=== PATIENT | female | born 1980 | race Caucasian/White ===

== ENCOUNTER 2017-04-09 11:27 | Emergency (ER) | payer BC ==
[2017-04-09 14:48] VITALS: BP 118/77
--- NOTE | 2017-04-09 15:00 | UC ---
Throat Pain/Nasal Malvin HPI - HPI Summary HPI Summary: Pt c/o fever chills, nasal congestion , sinus pressure and pain X 2 weeks. - History of Current Complaint Stated Complaint: FLU SXS Time Seen by Provider: 04/09/17 14:42 Hx Obtained From: Patient Hx Last Menstrual Period: 04/04/17 ?: No Onset/Duration: Gradual Onset, Lasting Weeks, Still Present, Worse Since - onset Severity: Moderate Pain Intensity: 6 Associated Signs & Symptoms: Positive: Sinus Discomfort - Epiglottits Risk Factors Epiglottis Risk Factors: Negative - Allergies/Home Medications Allergies/Adverse Reactions: Allergies Allergy/AdvReac Type Severity Reaction Status Date / Time No Known Allergies Allergy Verified 04/09/17 14:48 PMH/Surg Hx/FS Hx/Imm Hx Previously Healthy: Yes - Surgical History Surgical History: Yes Surgery Procedure, Year, and Place: L knee - Family History Known Family History: Positive: None, Cardiac Disease, Hypertension, Diabetes Negative: Renal Disease - Social History Occupation: Employed Full-time Lives: With Family Alcohol Use: Occasionally Alcohol Amount: once a week Substance Use Type: None Smoking Status (MU): Never Smoked Tobacco Have You Smoked in the Last Year: No Review of Systems Constitutional: Fever Skin: Negative Eyes: Negative ENT: Sinus Congestion, Sinus Pain/Tenderness Respiratory: Negative Cardiovascular: Negative Gastrointestinal: Negative Genitourinary: Negative Motor: Negative Neurovascular: Negative Musculoskeletal: Negative Neurological: Headache Psychological: Negative Is Patient Immunocompromised?: No All Other Systems Reviewed And Are Negative: Yes Physical Exam Triage Information Reviewed: Yes Appearance: Ill-Appearing Vital Signs: Initial Vital Signs Temp 99 F 04/09/17 14:42 Pulse 85 04/09/17 14:42 Resp 16 04/09/17 14:42 BP 118/77 04/09/17 14:42 Pulse Ox 98 04/09/17 14:42 Vital Signs Reviewed: Yes Eye Exam: Normal ENT Exam: Other ENT: Positive: Nasal congestion, Sinus tenderness Neck exam: Normal Respiratory Exam: Normal Cardiovascular Exam: Normal Musculoskeletal Exam: Normal Neurological Exam: Normal Psychological Exam: Normal Skin Exam: Normal Throat Pain/Nasal Course/Dx - Differential Dx/Diagnosis Differential Diagnosis/HQI/PQRI: Influenza, Sinusitis, URI Provider Diagnoses: sinusitis Discharge - Discharge Plan Condition: Stable Disposition: HOME Prescriptions: Amoxicillin PO (*) [Amoxicillin 875 MG (*)] 875 mg PO Q12H #20 tab Guaifenesin/Pseudo 600/60(NF) [Mucinex D 600/60 (NF)] 1 tab PO Q12H #14 tab Patient Education Materials: Sinusitis (ED) Referrals: [facility] [Outside] No Primary Care Phys,NOPCP [Primary Care Provider] -
== END 2017-04-09 15:07 | disposition home or self-care (01) ==
LOC: UCCORT 11:27
DX: J32.9 Chronic sinusitis, unspecified (principal)
CPT/HCPCS: 99212; G0463

== ENCOUNTER 2017-05-11 15:48 | Emergency (ER) | payer BC ==
[2017-05-11 16:05] VITALS: BP 107/68
--- NOTE | 2017-05-11 16:22 | ED ---
Upper Extremity Pain - HPI Summary HPI Summary: 36 yr old female with the complaint of left shoulder, clavicle pain. Onset three weeks ago. She fell going down the stairs and broke her fall by landing on her left elbow. She has some vague pain in the left anterior shoulder, then she went bowling with a heavy ball the same day. She has had persistent, and worsening pain in the left anterior shoulder and has felt a small swelling area over the most lateral part of the clavicle. Pain is moderate. Her limitations are lifting her left arm past 90 degrees abduction, and lifting it in flexion beyond about 150 degrees. - History of Current Complaint Chief Complaint: UCUpperExtremity Stated Complaint: LEFT SHLDR INJURY Time Seen by Provider: 05/11/17 16:01 Hx Last Menstrual Period: 05/06/17 - Allergies/Home Medications Allergies/Adverse Reactions: Allergies Allergy/AdvReac Type Severity Reaction Status Date / Time No Known Allergies Allergy Verified 05/11/17 16:04 PMH/Surg Hx/FS Hx/Imm Hx Respiratory History: Reports: Hx Asthma - early - Surgical History Surgery Procedure, Year, and Place: L knee Infectious Disease History: No Infectious Disease History: Denies: Traveled Outside the [place] in Last 30 Days - Family History Known Family History: Positive: None, Cardiac Disease, Hypertension, Diabetes Negative: Renal Disease - Social History Alcohol Use: Occasionally Alcohol Amount: once a week Substance Use Type: Reports: None Smoking Status (MU): Never Smoked Tobacco Have You Smoked in the Last Year: No Review of Systems Constitutional: Negative Positive: Other - left shoulder, clavicle pain All Other Systems Reviewed And Are Negative: Yes Physical Exam Triage Information Reviewed: Yes Vital Signs On Initial Exam: Initial Vitals Temp Pulse Resp BP Pulse Ox 98.6 F 82 16 107/68 99 05/11/17 15:59 05/11/17 15:59 05/11/17 15:59 05/11/17 15:59 05/11/17 15:59 Vital Signs Reviewed: Yes Appearance: Positive: Well-Appearing, No Pain Distress Skin: Positive: Warm, Skin Color Reflects Adequate Perfusion Head/Face: Positive: Normal Head/Face Inspection Eyes: Positive: EOMI ENT: Positive: Normal ENT inspection, TMs normal Neck: Positive: Nontender. Negative: Tenderness @ Respiratory/Lung Sounds: Positive: Clear to Auscultation, Breath Sounds Present , Other - no chest wall tenderness Cardiovascular: Positive: RRR. Negative: Murmur Abdomen Description: Positive: Nontender Musculoskeletal: Positive: Other - exam of left shoulder, clavicle is with point tenderness over the left AC joint area, and she is limited in abduction past 90 degrees at shoulder, 150 degree forward flexion and positive drop arm sign. External and internal rotation left shoulder WNL. Neurological: Positive: Sensory/Motor Intact, Alert, Oriented to Person Place, Time, CN Intact II-III Psychiatric: Positive: Normal - [place] Coma Scale Best Eye Response: 4 - Spontaneous Best Motor Response: 6 - Obeys Commands Best Verbal Response: 5 - Oriented Coma Scale Total: 15 Diagnostics - Vital Signs Vital Signs Temp Pulse Resp BP Pulse Ox 05/11/17 15:59 98.6 F 82 16 107/68 99 - Laboratory Lab Statement: Any lab studies that have been ordered have been reviewed, and results considered in the medical decision making process. - Radiology left shoulder, clavicle. Xray Interpretation: No Acute Changes Radiology Interpretation Completed By: Radiologist Course/Dx - Course Course Of Treatment: 36 yr old female with negative films. Dong has a mild AC joint separation/ and or a tear of the rotator cuff. WIll give sling and follow up with Orthopedics for further eval. - Diagnoses Provider Diagnoses: AC joint pain, Rotator cuff injury Discharge - Discharge Plan Condition: Good Disposition: HOME Prescriptions: Ibuprofen TAB* [Motrin TAB* 600 MG] 600 mg PO Q8H PRN #20 tab PRN Reason: Pain Patient Education Materials: Rotator Cuff Injury (ED), Shoulder Pain (ED) Referrals: Non Staff,Doctor [Primary Care Provider] - Maxx Martínez MD [Medical Doctor] -
--- NOTE | 2017-05-11 16:52 | RAD ---
Indication: Fall 4 weeks ago. No interval trauma. Sore LEFT shoulder and clavicle. Comparison: No relevant prior exams available on the [facility] PACS for comparison. Technique: AP and cephalad oblique views LEFT clavicle. Internal rotation AP, external rotation Grashey, scapular Y, axillary views LEFT shoulder Report: Normal sternoclavicular joint alignment. Normal acromioclavicular and glenohumeral joint alignment. Negative for clavicle, scapula, or proximal humeral fracture. No significant arthropathic change evident. Negative for stigmata of calcific tendinopathy. Unremarkable soft tissue contours. IMPRESSION: Negative radiographic exam of the LEFT clavicle and shoulder.
--- NOTE | 2017-05-11 16:52 | RAD ---
Indication: Fall 4 weeks ago. No interval trauma. Sore LEFT shoulder and clavicle. Comparison: No relevant prior exams available on the [facility] PACS for comparison. Technique: AP and cephalad oblique views LEFT clavicle. Internal rotation AP, external rotation Grashey, scapular Y, axillary views LEFT shoulder Report: Normal sternoclavicular joint alignment. Normal acromioclavicular and glenohumeral joint alignment. Negative for clavicle, scapula, or proximal humeral fracture. No significant arthropathic change evident. Negative for stigmata of calcific tendinopathy. Unremarkable soft tissue contours. IMPRESSION: Negative radiographic exam of the LEFT clavicle and shoulder.
== END 2017-05-11 17:08 | disposition home or self-care (01) ==
LOC: UCCORT 15:48
DX: M25.512 Pain in left shoulder (principal); S46.002A Unspecified injury of muscle(s) and tendon(s) of the rotator cuff of left shoulder, initial encounter; W10.9XXA Fall (on) (from) unspecified stairs and steps, initial encounter; Y93.01 Activity, walking, marching and hiking; Y92.9 Unspecified place or not applicable
CPT/HCPCS: 99213; G0463

== ENCOUNTER 2017-10-07 12:04 | Emergency (ER) | payer BC ==
[2017-10-07 12:41] VITALS: BP 112/71
== END 2017-10-07 13:27 | disposition left against medical advice (07) ==
LOC: UCCORT 12:04
DX: T15.91XA Foreign body on external eye, part unspecified, right eye, initial encounter (principal); Z53.21 Procedure and treatment not carried out due to patient leaving prior to being seen by health care provider

== ENCOUNTER 2017-12-24 14:40 | Emergency (ER) | payer BC ==
[2017-12-24 15:28] VITALS: BP 110/64
--- NOTE | 2017-12-24 15:35 | UC ---
Respiratory Complaint HPI - HPI Summary HPI Summary: 37 yo female presents with sinus pain/pressure/congestion and dry cough for the last 2 weeks. She has been taking OTC ibuprofen and cold medicine with no relief. She has a hx of asthma and has been using her albuterol inhaler with no relief. She denies fever, chills, sore throat, SOB, chest pain. - History of Current Complaint Chief Complaint: UCRespiratory Stated Complaint: COUGH, CONGESTION Time Seen by Provider: 12/24/17 15:34 Hx Obtained From: Patient Hx Last Menstrual Period: 12/01/17 Onset/Duration: Gradual Onset Severity Currently: None Pain Intensity: 0 - Allergies/Home Medications Allergies/Adverse Reactions: Allergies Allergy/AdvReac Type Severity Reaction Status Date / Time No Known Allergies Allergy Verified 12/24/17 15:17 Home Medications: Home Medications Albuterol HFA INHALER* [Ventolin HFA Inhaler*] 2 puff INH Q4H PRN 12/24/17 [ History Confirmed 12/24/17] Dm/Acetaminophen/Doxylamine [Nighttime Cold-Flu Liquid] 30 ml PO PRN 12/24/17 [ History] Otc Allergy Med 1 tab PO DAILY 12/24/17 [History] PMH/Surg Hx/FS Hx/Imm Hx Respiratory History: Asthma - Surgical History Surgical History: Yes Surgery Procedure, Year, and Place: L knee - Family History Known Family History: Positive: None, Cardiac Disease, Hypertension, Diabetes Negative: Renal Disease - Social History Occupation: Employed Full-time Lives: With Family Alcohol Use: Occasionally Alcohol Amount: once a week Substance Use Type: None Smoking Status (MU): Never Smoked Tobacco Have You Smoked in the Last Year: No Review of Systems Constitutional: Negative Skin: Negative Eyes: Negative ENT: Nasal Discharge, Sinus Congestion, Sinus Pain/Tenderness Respiratory: Cough Cardiovascular: Negative Gastrointestinal: Negative Neurovascular: Negative Neurological: Negative Psychological: Negative All Other Systems Reviewed And Are Negative: Yes Physical Exam - Summary Physical Exam Summary: GENERAL: NAD. WDWN. No pain distress. SKIN: No rashes, sores, lesions, or open wounds. HEENT: Head: AT/NC Eyes: EOM intact. Conjunctiva clear without inflammation or discharge. Ears: Hearing grossly normal. TMs intact, no bulging, erythema, or edema. Nose: Nasal mucosa mildly swollen and erythematous with clear discharge. TTP maxillary and frontal sinus. Positive post nasal drip Throat: Posterior oropharynx without exudates, erythema, or tonsillar enlargement. Uvula midline. NECK: Supple. Nontender. No lymphadenopathy. CHEST: CTAB. No r/r/w. No accessory muscle use. Breathing comfortably and in no distress. CV: RRR. Without m/r/g. Pulses intact. NEURO: Alert. PSYCH: Age appropriate behavior. Triage Information Reviewed: Yes Vital Signs: Initial Vital Signs Temp 97.5 F 12/24/17 15:20 Pulse 68 12/24/17 15:20 Resp 16 12/24/17 15:20 BP 110/64 12/24/17 15:20 Pulse Ox 100 12/24/17 15:20 Vital Signs Reviewed: Yes UC Diagnostic Evaluation - Laboratory O2 Sat by Pulse Oximetry: 100 Respiratory Course/Dx - Course Course Of Treatment: Sinusitis - Differential Dx/Diagnosis Provider Diagnoses: Sinusitis. Cough Discharge - Sign-Out/Discharge Documenting (check all that apply): Patient Departure All imaging exams completed and their final reports reviewed: No Studies - Discharge Plan Condition: Stable Disposition: HOME Prescriptions: Amoxicillin PO (*) [Amoxicillin 875 MG (*)] 875 mg PO BID #14 tab Benzonatate CAP* [Tessalon 100 MG CAP*] 100 mg PO TID PRN #21 cap PRN Reason: Cough Patient Education Materials: Sinusitis (ED), Acute Bronchitis (ED) Referrals: No Primary Care Phys,NOPCP [Primary Care Provider] - Additional Instructions: If you develop a fever, shortness of breath, chest pain, new or worsening symptoms - please call your PCP or go to the ED. - Billing Disposition and Condition Condition: STABLE Disposition: Home
== END 2017-12-24 15:44 | disposition home or self-care (01) ==
LOC: UCCORT 14:40
DX: J32.9 Chronic sinusitis, unspecified (principal); J45.909 Unspecified asthma, uncomplicated
CPT/HCPCS: 99212; G0463